=== PATIENT | female | born 1955 | race Caucasian/White ===

== ENCOUNTER 2018-02-05 20:30 | Inpatient (IN) | payer OTHER ==
[~2018-02-05] VITALS: Ht 154.9 cm; Wt 68.0 kg
[2018-02-05] MEDS ORDERED: IPRATROPIUM BROMIDE 0.5 MG/2.5 ML NEBU NEB ONE (20:45)
[2018-02-05] MEDS ORDERED: HYDROCODONE/APAP 10-325 MG TABLET PO ONE (20:45)
[2018-02-05] MEDS ORDERED: ALBUTEROL SULFATE 2.5 MG/3 ML NEBU NEB ONE (20:45)
[2018-02-05] MEDS ORDERED: IV NORMAL SALINE 1000 ML BAG IV ONE (20:45)
[2018-02-05] MEDS ORDERED: SERT50TA14 (20:49)
[2018-02-05] MEDS ORDERED: ATIVAN (20:49)
[2018-02-05] MEDS ORDERED: NORCO (20:49)
[2018-02-05] MEDS ORDERED: BUSPAR (20:50)
[2018-02-05] MEDS ORDERED: QUET25TA3 (20:50)
[2018-02-05] MEDS ORDERED: INHALERS (20:50)
--- NOTE | 2018-02-05 20:55 | NUR ---
Pt keyla from home for shortness of breath, pt sts she has history of asthma, no relief with home meds. C/O coarse congested cough keeping her up at night. No resp distress noted, pt speaking full sentences, resting in position of comfort for self. Dr. Navas at bedside for MSE.
[2018-02-05] MEDS ORDERED: IPRATROPIUM BROMIDE 0.5 MG/2.5 ML NEBU ONE (21:02)
[2018-02-05] MEDS ORDERED: ALBUTEROL SULFATE 2.5 MG/3 ML NEBU ONE (21:02)
[2018-02-05 21:04] LABS: BASOPHILS # (AUTO) 0.1 K/uL (0.0-8.0); BASOPHILS % (AUTO) 0.8 % (0.0-2.0); EOSINOPHILS # (AUTO) 0.4 K/uL (0.0-0.7); EOSINOPHILS % (AUTO) 5.7 % (0.0-7.0); HEMATOCRIT 34.1 % (31.2-41.9); HEMOGLOBIN 11.7 g/dL (10.9-14.3); LYMPHOCYTES % (AUTO) 51.4 % (20.5-51.5); MEAN CORPUSCULAR HEMOGLOBIN 30.5 uug (24.7-32.8); MEAN CORPUSCULAR HGB CONC 34 g/dL (32.3-35.6); MEAN CORPUSCULAR VOLUME 89.3 fL (75.5-95.3); MONOCYTES # (AUTO) 0.6 K/uL (2.0-10.0); MONOCYTES % (AUTO) 8.3 % (0.0-11.0); NEUTROPHILS # (AUTO) 2.6 K/uL (1.8-8.9); NEUTROPHILS % (AUTO) 33.8 % (38.5-71.5); PLATELET COUNT (AUTO) 284 K/uL (179-408); RED BLOOD CELL COUNT(AUTO) 3.82 MIL/uL (3.63-4.92); WHITE BLOOD COUNT (AUTO) 7.8 K/uL (3.8-11.8)
[2018-02-05 21:12] LABS: CREATININE 0.7 mg/dL (0.6-1.3); POTASSIUM 2.9 mmol/L (3.5-5.1)
[2018-02-05] MEDS ORDERED: HYDROCODONE/APAP 10-325 MG TABLET ONE (21:17)
[2018-02-05 21:29] LABS: BILIRUBIN,DIRECT 0.1 mg/dL (0.0-0.2); BILIRUBIN,TOTAL 0.2 mg/dL (0.2-1.0); TOTAL PROTEIN, SERUM 7.2 g/dL (6.4-8.2)
[2018-02-05] MEDS ORDERED: methylPREDNISolone SOD SUCC 125 MG/2 ML VIAL IV ONE (22:00)
[2018-02-05] MEDS ORDERED: methylPREDNISolone SOD SUCC 125 MG/2 ML VIAL ONE (22:04)
--- NOTE | 2018-02-05 22:08 | NUR ---
Pt to be admitted, admission pending. Pt resting in position of comfort self. Fluid bolus completed. Pt requesting more pain medication for her back and head. As well as cough medicine. Dr. Navas notified, awaiting further orders.
[2018-02-05] MEDS ORDERED: PROMETHAZINE/CODEINE 5 ML UDC PO ONE (22:15)
[2018-02-05] MEDS ORDERED: MORPHINE SULFATE 4 MG/1 ML DISP.SYRIN IV ONE (22:15)
[2018-02-05] MEDS ORDERED: ALBUTEROL SULFATE 2.5 MG/3 ML NEBU NEB PRN (23:30)
[2018-02-05] MEDS ORDERED: MAGNESIUM HYDROXIDE 30 ML LIQUID UDC PO PRN (23:30)
[2018-02-05] MEDS ORDERED: ACETAMINOPHEN 325 MG TABLET PO PRN (23:30)
[2018-02-05] MEDS ORDERED: ONDANSETRON 4 MG/2 ML VIAL IV PRN (23:30)
--- NOTE | 2018-02-05 23:34 | NUR ---
Pt. admitted to TELE, under care of Dr. LEUNG [place] completed
[2018-02-05] MEDS ORDERED: POTASSIUM CHLORIDE 20 MEQ TAB.PRT.SR ONE (23:37)
[2018-02-05] MEDS ORDERED: MORPHINE SULFATE 4 MG/1 ML DISP.SYRIN ONE (23:43)
[2018-02-05] MEDS ORDERED: GUAIFENESIN/CODEINE 5 ML LIQUID UDC ONE (23:45)
[2018-02-05] MEDS ORDERED: POTASSIUM CHLORIDE 20 MEQ TAB.PRT.SR PO ONE (23:45)
[2018-02-05] MEDS ORDERED: GUAIFENESIN/CODEINE 5 ML LIQUID UDC PO ONE (23:45)
[2018-02-06 00:04] LABS: *BILIRUBIN,URIN NEGATIVE (NEGATIVE); *BLOOD, URINE NEGATIVE (NEGATIVE); *CLARITY,URINE CLEAR (CLEAR); *COLOR,URINE STRAW (YELLOW); *KETONES,URINE NEGATIVE (NEGATIVE); *PROTEIN,URINE NEGATIVE (NEGATIVE); *UROBILINOGEN,URINE 0.2 E.U./dl (NORMAL); LEUKOCYTE ESTERASE ,URINE NEGATIVE (NEGATIVE); NITRITE, URINE NEGATIVE (NEGATIVE); UGLUCOSE NEGATIVE (NEGATIVE)
[2018-02-06 00:08] VITALS: BP 153/78
[2018-02-06 00:45] LABS: BACTERIA,URINE NONE SEEN /HPF (NONE SEEN); RBC,URINE NONE SEEN /HPF (0-3); SQUAMOUS EPITHELIAL CELL,UR FEW /HPF (NONE SEEN); WBC,URINE NONE SEEN /HPF (0-3)
--- NOTE | 2018-02-06 01:00 | NUR ---
RECEIVED PT FROM ER ADMITTED FOR ASTHMA EXACERBATION, PT BEEN COUGHING FOR 3 DAYS. PT IS ALERT,ORIENTED,AMBULATORY, SKIN INTACT AND DRY.HEPLOCK. CHRONIC BACK PAIN.ATE LATE DINNER. POC IMPLEMENTED.
[2018-02-06] MEDS: HYDROCODONE/APAP 5-325MG TABLET PO PRN ×5 (01:25→23:53)
[2018-02-06 04:00] VITALS: BP 90/57
[2018-02-06] MEDS: PANTOPRAZOLE SODIUM 40 MG TABLET.DR PO SCH (06:17)
[2018-02-06] MEDS: methylPREDNISolone SOD SUCC 40 MG/ML VIAL IV SCH ×3 (06:17→21:11)
[2018-02-06 07:06] LABS: BASOPHILS % (AUTO) 0.5 % (0.0-2.0); EOSINOPHILS % (AUTO) 0.2 % (0.0-7.0); HEMATOCRIT 31.7 % (31.2-41.9); HEMOGLOBIN 10.7 g/dL (10.9-14.3); LYMPHOCYTES # (AUTO) 1.5 K/uL (20.0-40.0); LYMPHOCYTES % (AUTO) 17.6 % (20.5-51.5); MEAN CORPUSCULAR HEMOGLOBIN 29.8 uug (24.7-32.8); MEAN CORPUSCULAR HGB CONC 34 g/dL (32.3-35.6); MEAN CORPUSCULAR VOLUME 88.6 fL (75.5-95.3); MONOCYTES # (AUTO) 0.1 K/uL (2.0-10.0); MONOCYTES % (AUTO) 1.6 % (0.0-11.0); NEUTROPHILS % (AUTO) 80.1 % (38.5-71.5); PLATELET COUNT (AUTO) 292 K/uL (179-408); RED BLOOD CELL COUNT(AUTO) 3.58 MIL/uL (3.63-4.92); WHITE BLOOD COUNT (AUTO) 8.7 K/uL (3.8-11.8)
[2018-02-06 07:44] LABS: CREATININE 0.8 mg/dL (0.6-1.3); MAGNESIUM 1.9 mg/dL (1.8-2.4); POTASSIUM 4.4 mmol/L (3.5-5.1)
[2018-02-06] MEDS ORDERED: LORA1TAB PO (09:00)
[2018-02-06] MEDS ORDERED: FLUT1DIS28 IH (09:01)
[2018-02-06] MEDS ORDERED: BUSP10TA3 PO (09:01)
[2018-02-06] MEDS ORDERED: HYDR-548 PO (09:02)
[2018-02-06] MEDS ORDERED: QUET25TA PO (09:03)
[2018-02-06] MEDS ORDERED: QUET300T2 PO (09:04)
[2018-02-06] MEDS ORDERED: SERT50TA PO (09:04)
[2018-02-06] MEDS ORDERED: LEVOFLOXACIN 500 MG/D5W 500 MG in PREMIXED 1 EACH IV SCH (11:00)
[2018-02-06] MEDS ORDERED: IPRATROPIUM BROMIDE 0.5 MG/2.5 ML NEBU NEB PRN (11:00)
[2018-02-06] MEDS ORDERED: NEUTRA PHOS PACKET PO ONE (11:00)
[2018-02-06] MEDS ORDERED: ALBUTEROL SULFATE 2.5 MG/3 ML NEBU NEB PRN (11:00)
[2018-02-06] MEDS ORDERED: ALBU18HF2 INH (11:18)
[2018-02-06 11:42] VITALS: BP 122/68
[2018-02-06 11:45] LABS: THYROID STIMULATING HORMONE 1.011 mIU/mL (0.358-3.740)
[2018-02-06] MEDS: IPRATROPIUM BROMIDE 0.5 MG/2.5 ML NEBU NEB SCH ×4 (12:00→23:41)
[2018-02-06] MEDS: ALBUTEROL SULFATE 2.5 MG/3 ML NEBU NEB SCH ×4 (12:00→23:41)
[2018-02-06] MEDS: busPIRone 10 MG TABLET PO SCH ×2 (12:01→16:51)
[2018-02-06] MEDS: CEFTRIAXONE 1 G in IV DEXTROSE 5% 50 ML IV SCH (12:02)
[2018-02-06] MEDS ORDERED: DOCUSATE SODIUM 100 MG CAPSULE PO SCH (13:15)
[2018-02-06] MEDS ORDERED: MAGNESIUM HYDROXIDE 30 ML LIQUID UDC PO ONE (13:15)
[2018-02-06] MEDS: NICOTINE 21 MG/24HR PATCH TD SCH (13:22)
[2018-02-06] MEDS: IV NS 1000 ML 1,000 ML IV PRN (13:23)
[2018-02-06 15:44] VITALS: BP 129/61
[2018-02-06] MEDS: LORAZEPAM 0.5 MG TABLET PO PRN (15:54)
--- NOTE | 2018-02-06 20:00 | NUR ---
RECEIVED PATIENT AWAKE IN BED, SHE'S AOX4. SHE DENIES PAIN OR ANY DISCOMFORT. NO RESP DISTRESS AT PRESENT. SAFETY MEASURES IN PLACE, CALL LIGHT LEFT WITHIN PATIENT'S REACH.WILL CONTINUE TO MONITOR PATIENT
[2018-02-06 20:22] VITALS: BP 123/69
[2018-02-06] MEDS: ATORVASTATIN 20 MG TABLET PO SCH (20:27)
[2018-02-06] MEDS: DOCUSATE SODIUM 100 MG CAPSULE PO SCH (20:28)
[2018-02-06] MEDS: QUETIAPINE FUMARATE 200 MG TABLET PO SCH (20:29)
[2018-02-06] MEDS ORDERED: ATORVASTATIN 10 MG TABLET PO SCH (21:00)
[2018-02-06] MEDS ORDERED: Medication Not On Formulary EA (Quetiapine Fumarate (Seroquel) 300 MG) PO SCH (21:00)
[2018-02-07] MEDS: ALBUTEROL SULFATE 2.5 MG/3 ML NEBU NEB SCH ×2 (03:15→07:35)
[2018-02-07] MEDS: IPRATROPIUM BROMIDE 0.5 MG/2.5 ML NEBU NEB SCH ×6 (03:15→23:30)
[2018-02-07] MEDS: methylPREDNISolone SOD SUCC 40 MG/ML VIAL IV SCH ×2 (06:00→20:33)
[2018-02-07] MEDS: PANTOPRAZOLE SODIUM 40 MG TABLET.DR PO SCH (06:01)
[2018-02-07] MEDS: IV NS 1000 ML 1,000 ML IV PRN ×2 (06:01→20:00)
--- NOTE | 2018-02-07 06:07 | NUR ---
PATIENT SLEPT WELL THROUGH THE NIGHT, PAIN MEDS X1. NO C/O PAIN AT PRESENT. NO RESP DISTRESS ON THIS SHIFT. NO SIGNIFICANT CHANGES IN STATUS. SAFETY MEASURES IN PLACE, CALL WITHIN PATIENT'S REACH
[2018-02-07 06:45] VITALS: BP 100/61
--- NOTE | 2018-02-07 08:20 | NUR ---
AWAKE ALERT AND ORIENTED FEEDING SELF IN BED STATED THAT SHE DID NOT SLEEP MUCH LAST NITE AND SUCH SHE IS TIRED AND WANTS TO REST AFTER HER BREAKFAST SHE IS COMPLIANT WITH MEDICATIONS AND CARE MADE COMFORTABLE AND WILL CONTINUE TO OBSERVE.
[2018-02-07] MEDS: busPIRone 10 MG TABLET PO SCH ×3 (08:36→16:34)
[2018-02-07] MEDS: OMEGA-3 FATTY ACIDS/FISH OIL CAPSULE PO SCH (08:37)
[2018-02-07] MEDS: QUETIAPINE FUMARATE 25 MG TABLET PO SCH (08:37)
[2018-02-07] MEDS: SERTRALINE HCL 50 MG TABLET PO SCH (08:37)
[2018-02-07] MEDS: LORAZEPAM 1 MG TABLET PO SCH (08:37)
[2018-02-07] MEDS: NICOTINE 21 MG/24HR PATCH TD SCH (08:39)
--- NOTE | 2018-02-07 09:01 | NUR ---
THE COM WRITER STATED THAT SHE HAS ATTEMPTED TO DRAW BLOOD FROM THE PATIENT FOR SCHEDULED TESTS BUT PATIENT HAS REFUSED 2 TIMES.
[2018-02-07] MEDS: HYDROCODONE/APAP 5-325MG TABLET PO PRN ×3 (10:28→20:18)
[2018-02-07] MEDS ORDERED: ALBUTEROL SULFATE 1.25 MG/3 ML NEBU NEB PRN (10:45)
[2018-02-07] MEDS ORDERED: ALBUTEROL SULFATE 2.5 MG/3 ML NEBU NEB PRN (10:45)
[2018-02-07] MEDS: ALBUTEROL SULFATE 1.25 MG/3 ML NEBU NEB SCH ×3 (11:10→19:42)
[2018-02-07 11:14] LABS: BASOPHILS % (AUTO) 0.1 % (0.0-2.0); HEMATOCRIT 32.3 % (31.2-41.9); HEMOGLOBIN 10.6 g/dL (10.9-14.3); LYMPHOCYTES # (AUTO) 1.6 K/uL (20.0-40.0); LYMPHOCYTES % (AUTO) 8.1 % (20.5-51.5); MEAN CORPUSCULAR HEMOGLOBIN 29.4 uug (24.7-32.8); MEAN CORPUSCULAR HGB CONC 33 g/dL (32.3-35.6); MEAN CORPUSCULAR VOLUME 89.4 fL (75.5-95.3); MONOCYTES % (AUTO) 4.8 % (0.0-11.0); NEUTROPHILS # (AUTO) 17.6 K/uL (1.8-8.9); PLATELET COUNT (AUTO) 294 K/uL (179-408); RED BLOOD CELL COUNT(AUTO) 3.61 MIL/uL (3.63-4.92); WHITE BLOOD COUNT (AUTO) 20.3 K/uL (3.8-11.8)
[2018-02-07 11:26] VITALS: BP 127/68
[2018-02-07] MEDS ORDERED: ALBUTEROL SULFATE 2.5 MG/3 ML NEBU NEB SCH (11:30)
[2018-02-07] MEDS: CEFTRIAXONE 1 G in IV DEXTROSE 5% 50 ML IV SCH (11:31)
[2018-02-07 11:42] LABS: BILIRUBIN,TOTAL 0.2 mg/dL (0.2-1.0); CREATININE 0.8 mg/dL (0.6-1.3); MAGNESIUM 2.3 mg/dL (1.8-2.4); PHOSPHOROUS 2.4 mg/dL (2.5-4.9); POTASSIUM 4.1 mmol/L (3.5-5.1); TOTAL PROTEIN, SERUM 7.1 g/dL (6.4-8.2)
[2018-02-07 15:03] VITALS: BP 109/63
[2018-02-07 15:03] LABS: ABG BASE EXCESS -1.9 mmol/L; ABG PCO2 29.7 mmHg (35.0-45.0); ABG PH 7.467 (7.350-7.450); ABG PO2 126.4 mmHg (75.0-100.0); ABG SITE RIGHT RADIAL; ABG TOTAL HEMOGLOBIN 10.6 G/dL (12.0-16.0); COHb 0.6 % (0.5-1.5); MetHb 0.3 % (0.0-1.5); O2Hb 97.6 % (94.0-97.0); VENT MODE RA
[2018-02-07] MEDS ORDERED: NEUTRA PHOS PACKET PO ONE (15:35)
--- NOTE | 2018-02-07 17:09 | NUR ---
CONTINUE TO REQUEST FOR PAIN MEDICATIONS ORDERED AND HELPFUL PHOS LEVEL IS LOW WITH REPLACEMENTS ORDERED.
--- NOTE | 2018-02-07 20:00 | NUR ---
RECEIVED PATIENT AWAKE IN BED. PATIENT IS A/O X4. DENIES ANY SOB. NO RESP. DISTRESS NOTED. ON RA AT THIS TIME, BUT HAS O2 PRN. VSS. INFUSING WELL TO RIGHT WRIST #20 GAUGE. C/O PAIN IN MIDDLE BACK. REQUESTING FOR PAIN MEDICATION. CALL LIGHT IN REACH. ALL NEEDS ATTENDED. WILL CONTINUE TO MONITOR AND ASSESS.
[2018-02-07 20:12] VITALS: BP 130/71
[2018-02-07] MEDS: QUETIAPINE FUMARATE 200 MG TABLET PO SCH (20:17)
[2018-02-07] MEDS: DOCUSATE SODIUM 100 MG CAPSULE PO SCH (20:17)
[2018-02-07] MEDS: ATORVASTATIN 20 MG TABLET PO SCH (20:18)
--- NOTE | 2018-02-07 20:20 | NUR ---
PATIENT GIVEN NORCO 1 TAB POR PRN FOR PAIN. VSS. WILL CONTINUE TO MONITOR.
--- NOTE | 2018-02-07 22:20 | NUR ---
PATIENT GIVEN NORCO 1 TAB POR PRN FOR PAIN. VSS. WILL CONTINUE TO MONITOR. Addendum: 02/08/18 at 0042 by ARELIS CABRAL LVN ERROR- WRONG TIME. PATIENT GIVEN NORCO AT 2020.
--- NOTE | 2018-02-07 22:21 | NUR ---
PATIENT AWAKE, DENIES PAIN AT THIS TIME. NORCO EFFECTIVE. PATIENT REQUESTING FOR ATIVAN. PATIENT GIVEN ATIVAN 0.5MG PO PRN FOR PAIN. ALL NEEDS ATTENDED. WILL CONTINUE TO MONITOR AND ASSESS.
[2018-02-07] MEDS: LORAZEPAM 0.5 MG TABLET PO PRN (22:22)
--- NOTE | 2018-02-08 | NUR ---
PATIENT ASLEEP IN BED. NO RESP. DISTRESS NOTED. CALL LIGHT IN REACH. ALL NEEDS ATTENDED, WILL CONTINUE TO MONITOR.
[2018-02-08] MEDS: IPRATROPIUM BROMIDE 0.5 MG/2.5 ML NEBU NEB SCH ×6 (03:14→22:51)
[2018-02-08 04:00] VITALS: BP 130/58
[2018-02-08] MEDS: PANTOPRAZOLE SODIUM 40 MG TABLET.DR PO SCH (06:10)
--- NOTE | 2018-02-08 06:41 | NUR ---
PATIENT ASLEEP IN BED. SLEPT WELL THROUGHOUT THE NIGHT. VSS. IVF INFUSING WELL. CALL LIGHT IN REACH. ALL NEEDS ATTENDED. WILL CONTINUE TO MONITOR.
[2018-02-08 07:19] LABS: BASOPHILS % (AUTO) 0.3 % (0.0-2.0); HEMATOCRIT 29.9 % (31.2-41.9); HEMOGLOBIN 9.8 g/dL (10.9-14.3); LYMPHOCYTES # (AUTO) 1.7 K/uL (20.0-40.0); LYMPHOCYTES % (AUTO) 11.2 % (20.5-51.5); MEAN CORPUSCULAR HEMOGLOBIN 29.2 uug (24.7-32.8); MEAN CORPUSCULAR HGB CONC 33 g/dL (32.3-35.6); MEAN CORPUSCULAR VOLUME 89.2 fL (75.5-95.3); MONOCYTES # (AUTO) 0.7 K/uL (2.0-10.0); MONOCYTES % (AUTO) 4.5 % (0.0-11.0); NEUTROPHILS # (AUTO) 12.7 K/uL (1.8-8.9); PLATELET COUNT (AUTO) 227 K/uL (179-408); RED BLOOD CELL COUNT(AUTO) 3.35 MIL/uL (3.63-4.92); WHITE BLOOD COUNT (AUTO) 15.1 K/uL (3.8-11.8)
--- NOTE | 2018-02-08 07:28 | NUR ---
IN BED ASLEEP AROUSES EASILY ON ROUNDS STATED COMFORTABLE WITH NO DISCOMFORTS AT THIS TIME IVF IN PROGRESS ORDERED WITH NO S/S OF INFILTERATION ON SITE CALL LIGHTS AND PERSONAL BELONGINGS ARE WITHIN EASY REACH AT THIS TIME AND WILL CONTINUE TO OBSERVE PATIENT.
[2018-02-08] MEDS: ALBUTEROL SULFATE 1.25 MG/3 ML NEBU NEB SCH ×4 (07:52→19:38)
[2018-02-08 07:57] LABS: BILIRUBIN,TOTAL 0.3 mg/dL (0.2-1.0); CREATININE 0.7 mg/dL (0.6-1.3); MAGNESIUM 2.1 mg/dL (1.8-2.4); PHOSPHOROUS 3.8 mg/dL (2.5-4.9); POTASSIUM 4.1 mmol/L (3.5-5.1); TOTAL PROTEIN, SERUM 6.2 g/dL (6.4-8.2)
[2018-02-08] MEDS: methylPREDNISolone SOD SUCC 40 MG/ML VIAL IV SCH ×2 (08:36→21:13)
[2018-02-08] MEDS: LORAZEPAM 1 MG TABLET PO SCH (08:36)
[2018-02-08] MEDS: OMEGA-3 FATTY ACIDS/FISH OIL CAPSULE PO SCH (08:36)
[2018-02-08] MEDS: busPIRone 10 MG TABLET PO SCH ×3 (08:36→16:43)
[2018-02-08] MEDS: QUETIAPINE FUMARATE 25 MG TABLET PO SCH (08:36)
[2018-02-08] MEDS: SERTRALINE HCL 50 MG TABLET PO SCH (08:36)
[2018-02-08] MEDS: NICOTINE 21 MG/24HR PATCH TD SCH (08:40)
[2018-02-08] MEDS: HYDROCODONE/APAP 5-325MG TABLET PO PRN ×2 (10:57→19:32)
[2018-02-08] MEDS: IV NS 1000 ML 1,000 ML IV PRN (10:57)
[2018-02-08 11:37] VITALS: BP 133/68
[2018-02-08] MEDS: GUAIFENESIN/CODEINE 5 ML LIQUID UDC PO PRN ×2 (12:22→18:20)
[2018-02-08] MEDS: CEFTRIAXONE 1 G in IV DEXTROSE 5% 50 ML IV SCH (12:23)
--- NOTE | 2018-02-08 13:42 | NUR ---
DR LEUNG IN ROOM TO SEE PATIENT IV SITE INFILTERATED MD STATED TO STOP IVF BUT TO CONTINUE WITH ANTIBIOTICS NEXT DOSE OF ANTIBIOTICS IS DUE AT 1200 TOMORROW SO PATIENT STATED THAT SHE DOES NOT WANT HEPLOCK INSERTED SINCE SHE WILL NOT BE GETTING ANYTHING UNTIL TOMORROW MD AWARE AND HE STATED OKAY TO LEAVE THE HEPLOCK OUT FOR NOW AND HE WILL DECIDE ON THE ATB PATIENT AWARE.
--- NOTE | 2018-02-08 15:53 | NUR ---
PATIENT HAS NO IV SITE AND IS REFUSING TO HAVE IV INSERTED FOR THE IV ZITHROMAX ORDERED BY DR CARTER UNGER SO CALLED DR LEUNG NOTIFIED HIM WITH ORDER TO CHANGE ZITHROMAX TO PO AND NOTED.
[2018-02-08] MEDS ORDERED: AZITHROMYCIN IV 500 MG in IV DEXTROSE 5% 250 ML IV SCH (16:00)
[2018-02-08 16:20] VITALS: BP 110/56
[2018-02-08] MEDS: AZITHROMYCIN 250 MG TABLET PO SCH (16:43)
--- NOTE | 2018-02-08 18:30 | NUR ---
AMBULATORY IN THE HALLWAY GETTING SOMEWHAT ANXIOUS COUGHING MEDICATED WITH ROBITUSSIN AC ORDERED AND WILL OBSERVE.
--- NOTE | 2018-02-08 19:35 | NUR ---
RECEIVED PATIENT AWAKE IN BED, RECEIVING VREATHING TREATMENT. PATIENT IS C/O PAIN, IN UPPER MIDDLE BACK. PATIENT REQUESTING FOR NORCO. PATIENT GIVEN NORCO 1 TAB PO PRN FOR PAIN. VS WNL. NO RESP. DISTRESS NOTED. REPORTED DURING SHIFT CHANGE THAT PATIENT DOES NOT HAVE ANY IV ACCESS AND MD IS AWARE. CALL LIGHT IN REACH. ALL NEEDS ATTENDED. WILL CONTINUE TO MONITOR AND ASSESS.
[2018-02-08 20:32] VITALS: BP 142/69
[2018-02-08] MEDS: QUETIAPINE FUMARATE 200 MG TABLET PO SCH (20:33)
[2018-02-08] MEDS: DOCUSATE SODIUM 100 MG CAPSULE PO SCH (20:33)
[2018-02-08] MEDS: ATORVASTATIN 20 MG TABLET PO SCH (20:33)
[2018-02-08] MEDS: LORAZEPAM 0.5 MG TABLET PO PRN (22:04)
[2018-02-09] MEDS: GUAIFENESIN/CODEINE 5 ML LIQUID UDC PO PRN ×3 (00:05→18:04)
[2018-02-09] MEDS: IPRATROPIUM BROMIDE 0.5 MG/2.5 ML NEBU NEB SCH ×6 (02:30→23:30)
[2018-02-09 04:31] VITALS: BP 108/52
[2018-02-09] MEDS: methylPREDNISolone SOD SUCC 40 MG/ML VIAL IV SCH ×2 (06:00→13:13)
--- NOTE | 2018-02-09 06:16 | NUR ---
PATIENT ASLEEP IN BED. SLEPT WELL THROUGHOUT THE NIGHT. VSS. NO RESP. DISTRESS NOTED. CALL LIGHT IN REACH. ALL NEEDS ATTENDED. WILL CONTINUE TO MONITOR.
[2018-02-09] MEDS: PANTOPRAZOLE SODIUM 40 MG TABLET.DR PO SCH (06:32)
[2018-02-09] MEDS: ALBUTEROL SULFATE 1.25 MG/3 ML NEBU NEB SCH ×4 (07:29→19:23)
[2018-02-09] MEDS: OMEGA-3 FATTY ACIDS/FISH OIL CAPSULE PO SCH (07:53)
[2018-02-09] MEDS: NICOTINE 21 MG/24HR PATCH TD SCH (07:53)
[2018-02-09] MEDS: SERTRALINE HCL 50 MG TABLET PO SCH (07:53)
[2018-02-09] MEDS: busPIRone 10 MG TABLET PO SCH ×3 (07:53→16:57)
[2018-02-09] MEDS: QUETIAPINE FUMARATE 25 MG TABLET PO SCH (07:54)
[2018-02-09] MEDS: HYDROCODONE/APAP 5-325MG TABLET PO PRN ×4 (07:57→23:54)
[2018-02-09] MEDS: LORAZEPAM 1 MG TABLET PO SCH (09:00)
[2018-02-09 11:48] VITALS: BP 109/58
[2018-02-09] MEDS: LORAZEPAM 0.5 MG TABLET PO PRN ×2 (13:56→23:53)
[2018-02-09 15:55] VITALS: BP 112/73
[2018-02-09] MEDS: predniSONE 20 MG TABLET PO SCH (16:57)
[2018-02-09] MEDS: AZITHROMYCIN 250 MG TABLET PO SCH (16:57)
--- NOTE | 2018-02-09 19:25 | NUR ---
RECEIVED PT AWAKE , ALERT , ORIENTEDX4. PT ON BREATHING TREATMENT. CALL LIGHT WITHIN REACH. WILL CONTINUE TO MONITOR.
[2018-02-09] MEDS: DOCUSATE SODIUM 100 MG CAPSULE PO SCH (20:14)
[2018-02-09] MEDS: ATORVASTATIN 20 MG TABLET PO SCH (20:14)
[2018-02-09] MEDS: QUETIAPINE FUMARATE 200 MG TABLET PO SCH (20:14)
--- NOTE | 2018-02-09 20:18 | NUR ---
PT REFUSE HER MEDICATION COLACE SINCE SHE JUST HAD A BOWEL MOVEMENT. SHE TOOK HER LIPITOR AND SEROQUEL.SHE ASKED FOR HER PAIN MEDICATION NORCO. NORCO GIVEN. SHE SAID IT HELP THE PAIN.
[2018-02-09 20:27] VITALS: BP 139/88
--- NOTE | 2018-02-09 22:30 | NUR ---
ASKED PT HER CODE STATUS. PT SAID SHE WANTS FULL CODE FOR HER. I PUT IT ON HER RECORDS.
--- NOTE | 2018-02-09 23:45 | NUR ---
PT SAID SHE REFUSE THE BREATHING TREATMENT BECAUSE SHE WANTS TO SLEEP. SHE ALSO REQUEST NOT TO BE DISTURBED UNTIL 5AM. SHE WANTS TO BE THE LAST ONE FOR CHARCOAL UNLOADER TO TAKE HER VITAL SIGNS SO SHE CAN SLEEP. I INFORMED THE CHARCOAL UNLOADER OF PT REQUEST. WILL CONTINUE TO MONITOR.
[2018-02-10] MEDS: IPRATROPIUM BROMIDE 0.5 MG/2.5 ML NEBU NEB SCH ×3 (02:30→11:30)
[2018-02-10 04:00] VITALS: BP 115/56
[2018-02-10] MEDS: HYDROCODONE/APAP 5-325MG TABLET PO PRN (05:55)
[2018-02-10] MEDS: PANTOPRAZOLE SODIUM 40 MG TABLET.DR PO SCH (06:12)
--- NOTE | 2018-02-10 06:19 | NUR ---
PT SLEPT THROUGHOUT THE SHIFT. PT STILL COUGHING. PT DECLINED THE BREATHING TREATMENT AT 2330H 02/09/18.RT AWARE AND NOTIFIED. ALL PRESCRIBED MEDICATION GIVEN. EXCEPT COLACE BECAUSE PT REFUSED BECAUSE SHE HAD A BOWEL MOVEMENT. PT TOLERATED IT WELL.CALL LIGHT WITHIN REACH. SAFETY AND COMFORT PROVIDED. WILL ENDORSE TO DAYSHIFT NURSE.
[2018-02-10 06:51] LABS: CREATININE 0.7 mg/dL (0.6-1.3); MAGNESIUM 2.1 mg/dL (1.8-2.4); PHOSPHOROUS 4.9 mg/dL (2.5-4.9); POTASSIUM 3.8 mmol/L (3.5-5.1)
[2018-02-10 07:28] LABS: EOSINOPHILS # (AUTO) 0.1 K/uL (0.0-0.7); EOSINOPHILS % (AUTO) 0.8 % (0.0-7.0); LYMPHOCYTES # (AUTO) 2.6 K/uL (20.0-40.0); LYMPHOCYTES % (AUTO) 22.2 % (20.5-51.5); MEAN CORPUSCULAR HGB CONC 34 g/dL (32.3-35.6); MEAN CORPUSCULAR VOLUME 88.7 fL (75.5-95.3); MONOCYTES # (AUTO) 0.8 K/uL (2.0-10.0); MONOCYTES % (AUTO) 6.8 % (0.0-11.0); NEUTROPHILS # (AUTO) 8.1 K/uL (1.8-8.9); NEUTROPHILS % (AUTO) 70.2 % (38.5-71.5); RED BLOOD CELL COUNT(AUTO) 3.74 MIL/uL (3.63-4.92); WHITE BLOOD COUNT (AUTO) 11.6 K/uL (3.8-11.8)
--- NOTE | 2018-02-10 07:30 | NUR ---
RECEIVED PATIENT AWAKE IN BED. PATIENT IS A/O X4. DENIES ANY SOB. NO RESP. DISTRESS NOTED. ON RA . VSS. CALL LIGHT IN REACH. ALL NEEDS ATTENDED. WILL CONTINUE TO MONITOR AND ASSESS
[2018-02-10 07:41] LABS: HEMATOCRIT 33.2 % (31.2-41.9); HEMOGLOBIN 11.2 g/dL (10.9-14.3); PLATELET COUNT (AUTO) 300 K/uL (179-408)
[2018-02-10] MEDS: SERTRALINE HCL 50 MG TABLET PO SCH (08:04)
[2018-02-10] MEDS: predniSONE 20 MG TABLET PO SCH (08:04)
[2018-02-10] MEDS: NICOTINE 21 MG/24HR PATCH TD SCH (08:04)
[2018-02-10] MEDS: OMEGA-3 FATTY ACIDS/FISH OIL CAPSULE PO SCH (08:04)
[2018-02-10] MEDS: busPIRone 10 MG TABLET PO SCH ×2 (08:04→12:12)
[2018-02-10] MEDS: LORAZEPAM 1 MG TABLET PO SCH (08:04)
[2018-02-10] MEDS: QUETIAPINE FUMARATE 25 MG TABLET PO SCH (08:05)
[2018-02-10] MEDS: ALBUTEROL SULFATE 1.25 MG/3 ML NEBU NEB SCH ×2 (08:23→11:30)
[2018-02-10] MEDS: GUAIFENESIN/CODEINE 5 ML LIQUID UDC PO PRN (11:15)
[2018-02-10 11:58] VITALS: BP 125/75
[2018-02-10] MEDS ORDERED: OMEG1CAP PO (13:13)
[2018-02-10] MEDS ORDERED: ATOR20TA PO (13:13)
[2018-02-10] MEDS ORDERED: AZIT250T13 PO (13:13)
[2018-02-10] MEDS ORDERED: METH4TAB3 PO (13:13)
--- NOTE | 2018-02-10 14:30 | NUR ---
d/c orders received noted and carried out,d/c instructions and education given to the pt,d/c nicolette per md orders,pt left the facility via private taxi in stable condition.
== END 2018-02-10 14:35 | disposition home or self-care (01) | DRG 144 ==
LOC: ER 20:32 → EDBD 20:32 → TELE 23:49 → MED 02-06 07:10
PROVIDERS: ADMIT Internal Medicine; ATTEND Internal Medicine
DX: J20.9 Acute bronchitis, unspecified (principal); J96.01 Acute respiratory failure with hypoxia; J45.901 Unspecified asthma with (acute) exacerbation; E83.39 Other disorders of phosphorus metabolism; K21.9 Gastro-esophageal reflux disease without esophagitis; B96.89 Other specified bacterial agents as the cause of diseases classified elsewhere; E87.6 Hypokalemia; E03.9 Hypothyroidism, unspecified; G89.29 Other chronic pain; M54.9 Dorsalgia, unspecified; Z91.09 Other allergy status, other than to drugs and biological substances; F32.9 Major depressive disorder, single episode, unspecified; F41.9 Anxiety disorder, unspecified; E66.9 Obesity, unspecified; Z68.28 Body mass index [BMI] 28.0-28.9, adult; K59.09 Other constipation; D64.9 Anemia, unspecified; D72.829 Elevated white blood cell count, unspecified; T38.0X5A Adverse effect of glucocorticoids and synthetic analogues, initial encounter; Y92.230 Patient room in hospital as the place of occurrence of the external cause; Z80.9 Family history of malignant neoplasm, unspecified; Z83.3 Family history of diabetes mellitus; Z82.49 Family history of ischemic heart disease and other diseases of the circulatory system; R53.1 Weakness; I70.0 Atherosclerosis of aorta; E78.5 Hyperlipidemia, unspecified
CPT/HCPCS: 36415; 36600; 70030-TC; 71045; 83735; 84100; 84443; 85025; 87070; 87086; 87400; 93005; 94640; 94664; A4663; J0456; J0696; J2270; J2920; J2930; J3590; J7030; J7050; J7060; J7512; Q0144

== ENCOUNTER 2018-10-04 13:43 | Emergency (ER) | payer OTHER ==
[~2018-10-04] VITALS: Ht 154.9 cm; Wt 65.8 kg
[~2018-10-04 13:43] MED LIST: ALBU18HF2 INH; ATOR20TA PO; AZIT250T13 PO; BUSP10TA3 PO; HYDR-4354 PO; LORA1TAB PO; METH4TAB3 PO; OMEG1CAP PO; QUET25TA PO; QUET300T2 PO; SERT50TA PO
[2018-10-04] MEDS ORDERED: KETOROLAC TROMETHAMINE 30 MG INJ IM ONE (14:15)
[2018-10-04] MEDS ORDERED: predniSONE 10 MG TABLET PO ONE (14:15)
[2018-10-04] MEDS ORDERED: ALBUTEROL SULFATE 2.5 MG/3 ML NEBU NEB ONE (14:15)
[2018-10-04] MEDS ORDERED: IPRATROPIUM BROMIDE 0.5 MG/2.5 ML NEBU NEB ONE (14:15)
[2018-10-04] MEDS ORDERED: predniSONE 20 MG TABLET ONE (14:19)
[2018-10-04] MEDS ORDERED: KETOROLAC TROMETHAMINE 30 MG INJ ONE (14:19)
[2018-10-04] MEDS ORDERED: IPRATROPIUM BROMIDE 0.5 MG/2.5 ML NEBU ONE (14:22)
[2018-10-04] MEDS ORDERED: ALBUTEROL SULFATE 2.5 MG/ 0.5 ML NEBU ONE (14:22)
--- NOTE | 2018-10-04 14:45 | NUR ---
Belt Maker assumes care- patient is AOMary, NAD, pending [email or web address] time
--- NOTE | 2018-10-04 15:10 | NUR ---
Patient discharged to home in stable conditon& brisk steady gait. Written and verbal after care instructions given to patient. Patient verbalizes understanding of instructions.
== END 2018-10-04 15:12 | disposition home or self-care (01) ==
LOC: ER 13:43
DX: J20.9 Acute bronchitis, unspecified (principal); J45.909 Unspecified asthma, uncomplicated
CPT/HCPCS: 94640; 96372; 99283; J1885; J7512; A4663; J3590